=== PATIENT | male | born 1970 | race Two or more races ===

== ENCOUNTER 2022-05-21 12:15 | Emergency (ER) | payer MEDICAID, OTHER ==
[~2022-05-21] VITALS: Ht 182.9 cm; Wt 97.0 kg
[2022-05-21 14:28] VITALS: BP 121/88
[2022-05-21] MEDS ORDERED: TETRACAINE HCL 0.5% OPTH(EYE) SOLN 4ML RIGHTEYE ONE (14:45)
[2022-05-21] MEDS ORDERED: FLUORESCEIN SOD OPTH TEST STRIP RIGHTEYE ONE (14:45)
[2022-05-21] MEDS ORDERED: POLYSOL15 OP (15:06)
== END 2022-05-21 15:18 | disposition home or self-care (01) ==
LOC: ER 12:15
DX: T15.81XA Foreign body in other and multiple parts of external eye, right eye, initial encounter (principal); Z79.899 Other long term (current) drug therapy; X58.XXXA Exposure to other specified factors, initial encounter; Y93.89 Activity, other specified; Y92.89 Other specified places as the place of occurrence of the external cause; Y99.8 Other external cause status

== ENCOUNTER 2024-11-13 16:27 | Emergency (ER) | payer MEDICAID, OTHER ==
[~2024-11-13] VITALS: Ht 185.4 cm; Wt 98.3 kg
[~2024-11-13 16:27] MED LIST: POLYSOL28 OP
--- NOTE | 2024-11-13 17:53 | DVH ---
INDICATION: Trauma COMPARISON: None TECHNIQUE: 3 views of the lumbar spine were obtained. FINDINGS: The lumbar vertebral alignment is normal. Mild multilevel degenerative disc disease at L5-S1. No acute fracture, vertebral compression deformity or aggressive osseous lesions. The paravertebral soft tissues are grossly unremarkable. IMPRESSION: No acute fracture.
--- NOTE | 2024-11-13 18:00 | ED.PDOC ---
Alfredo. trauma (HPI) HPI Comments 54y M who presents to the ED for chief complaint of fall injury. Pt states he was at work and states he had fall injury and fell backwards onto his back to help break his fall. Pt states he started to have dizziness as he fell on his back but states he did not hit his head and states he did not lose consciousness. Pt states he continued to have pain after the fall while at work and came to the ED after work. Pt states now in the ED, his pain is located by his lower back, non-radiating, constant, rating the pain 10/10, with no associated exacerbating or relieving factors. Pt denies any dizziness, headache, chest pain, nausea, vomiting or diarrhea. Pt is [id number] and able to answer all questions. Pt otherwise denies any other symptoms at this time. Chief Complaint: fall injury Time Seen by MD: 17:42 Reviewed notes: Nurses Notes, Medications, Allergies (No allergies to medications) Allergies: Coded Allergies: NO KNOWN ALLERGIES (Unverified , 05/21/22) Home Meds Active Scripts Tramadol Hcl (Tramadol Hcl) 50 Mg Tab, 50 MG PO Q8HP PRN for 5 Days, #15 TAB Prov:BRITTNEY GONZALEZ MD 11/13/24 Polymyxin B-Trimethoprim (Trimethoprim Sulfate/Poly) Polymyxn Millicent, 1 DROP OP Q3HR for 7 Days, #1 BOTTLE 0 Refills Prov:DOMINGO CHUA 05/21/22 Information Source: Patient Mode of Arrival: Ambulatory Brought in by: self Severity: Moderate Timing: Hours Duration: Since onset Prehospital treatment: None Location: Back Location of laceration: None Mechanism: Fall Associated signs and symtoms: None Past Medical History PAST MEDICAL HISTORY: Denies Surgical History: Denies all surgeries Family History Family History: Unknown Social History Smoker: Non-Smoker Alcohol: Denies ETOH Use Drugs: Denies Drug Use Lives In: Home Constitutional: denies: chills, diaphoresis, fatigue, fever, malaise, sweats, weakness, others EENTM: denies: blurred vision, double vision, ear bleeding, ear discharge, ear drainage, ear pain, ear ringing, eye pain, eye redness, hearing loss, mouth pain, mouth swelling, nasal discharge, nose bleeding, nose congestion, nose pain, photophobia, tearing, throat pain, throat swelling, voice changes, others Respiratory: denies: cough, hemoptysis, orthopnea, SOB at rest, shortness of breath, SOB with excertion, stridor, wheezing, others Cardiovascular: denies: chest pain, dizzy spells, diaphoresis, Dyspnea on exertion, edema, irregular heart beat, left arm pain, lightheadedness, palpitations, PND, syncope, others Gastrointestinal: denies: abdomen distended, abdominal pain, blood streaked bowels, constipated, diarrhea, dysphagia, difficulty swallowing, hematemesis, melena, nausea, poor appetite, poor fluid intake, rectal bleeding, rectal pain, vomiting, others Genitourinary: denies: burning, dysuria, flank pain, frequency, hematuria, incontinence, penile discharge, penile sore, pain, testicle pain, testicle swelling, urgency, others Neurological: denies: dizziness, fainting, headache, left sided numbness, left sided weakness, numbness, paresthesia, pre-existing deficit, right sided numbness, right sided weakness, seizure, speech problems, tingling, tremors, weakness, others Musculoskeletal: reports: back pain; denies: gout, joint pain, joint swelling, muscle pain, muscle stiffness, neck pain, others Integumetry: denies: bruises, change in color, change in hair/nails, dryness, laceration, lesions, lumps, rash, wounds, others Allergic/Immunocompromised: denies: Difficulty Healing, Frequent Infections, Hives, Itching, others Hematologic/Lymphatic: denies: anemia, blood clots, easy bleeding, easy bruising, swollen glands, others Endocrine: denies: excessive hunger, excessive sweating, excessive thirst, excessive urination, flushing, intolerance to cold, intolerance to heat, unexplained weight gain, unexplained weight loss, others Psychiatric: denies: anxiety, bipolar disorder, depression, hopeless, panic disorder, schizophrenia, sleepless, suicidal, others All Other Systems: Reviewed and Negative Physical Exam General Appearance: No Apparent Distress HEENT: Normal ENT Inspection, Pharynx Normal, TMs Normal Neck: Full Range of Motion, Non-Tender, Normal, Normal Inspection Respiratory: Chest Non-Tender, Lungs Clear, No Accessory Muscle Use, No Respiratory Distress, Normal Breath Sounds Cardiovascular: No Edema, No JVD, No Murmur, No Gallop, Normal Peripheral Pulses, Regular Rate/Rhythm Breast Exam: Deferred Gastrointestinal: No Organomegaly, Non Tender, No Pulsatile Mass, Normal Bowel Sounds, Soft Genitalia: Deferred Pelvic: Deferred Rectal: Deferred Extremities: No calf tenderness, Normal capillary refill, No pedal edema Musculoskeletal : Location: Bilateral Extremity Location: Back Apperance: Limited ROM, Tenderness: Mild Neurologic: Alert, surgical pathologist II-XII nml as Tested, No Motor Deficits, Normal Affect, Normal Mood, No Sensory Deficits Cerebellar Function: Normal Reflexes: Normal Skin: Dry, Normal Color, Warm Lymphatic: No Adenopathy Was a procedure done? Was a procedure done?: No Differential Diagnosis Multiple Trauma: Intraabdominal Injury, Pulmonary Contusion, Vascular Injury, Abrasions, Contusion Neck Injury: Cervical Muscle Spasm X-Ray, Labs, Meds, VS Vital Signs Date Time Temp Pulse Resp B/P (MAP) Pulse Ox O2 Delivery O2 Flow Rate FiO2 11/13/24 18:01 97.9 86 16 122/79 (93) 96 At this time, the patient was being discharged The patient will return to the emergency department's condition worsens The patient was given Toradol 60 mg IM The patient will follow up with the primary care doctor The patient will return to the emergency department's condition worsens. Images Reviewed?: Images reviewed and evaluated by me Time of 1ST Reevaluation: 18:15 Reevaluation 1ST: Unchanged Patient Education/Counseling: Diagnosis, Treatment, Prognosis, Need For Follow Up Family Education/Counseling: No Family Present Departure 1 Departure Time of Disposition: 18:22 Impression: Primary Impression: Lumbar spine strain Qualified Codes: S39.012A - Strain of muscle, fascia and tendon of lower back, initial encounter Disposition: HOME / SELF CARE / HOMELESS Condition: Fair e-Prescriptions Tramadol Hcl (Tramadol Hcl) 50 Mg Tab 50 MG PO Q8HP PRN for 5 Days, #15 TAB Prov: BRITTNEY GONZALEZ MD 11/13/24 Discharged With: Self Critical Care Note Critical Care Time?: No Stability Stability form required: No Heart Score Heart Score: Heart Score Response (Comments) Value History N/A 0 EKG N/A 0 Age N/A 0 Risk Factors N/A 0 Troponin N/A 0 Total 0 I personally scribed for BRITTNEY GONZALEZ MD ([email or web address]) on 11/13/24 at 18:00. Electronically submitted by Janiya Meléndez ([email or web address]). BRITTNEY GONZALEZ MD Nov 13, 2024 18:00
[2024-11-13] MEDS ORDERED: TRAM50TA2 PO (18:14)
[2024-11-13 20:30] VITALS: BP 113/78; PULSE 71; RESP 18; TEMP 98.1; O2SAT 96
[2024-11-13] MEDS: KETOROLAC TROMETH 60MG/2ML VIAL IM ONE (20:31)
== END 2024-11-13 20:31 | disposition home or self-care (01) ==
LOC: ER 16:27
DX: S39.012A Strain of muscle, fascia and tendon of lower back, initial encounter (principal); R42 Dizziness and giddiness; W18.09XA Striking against other object with subsequent fall, initial encounter; Y93.89 Activity, other specified; Y92.69 Other specified industrial and construction area as the place of occurrence of the external cause; Y99.8 Other external cause status
CPT/HCPCS: 72100